=== PATIENT | female | born 1940 | race Hispanic/Latino ===

== ENCOUNTER 2023-11-25 23:30 | Emergency (ER) | payer MEDICARE ==
[~2023-11-25] VITALS: Ht 165.1 cm; Wt 63.0 kg
[2023-11-25 23:37] VITALS: PULSE 90; RESP 18; TEMP 98.5; O2SAT 100
[2023-11-25] MEDS: KETOROLAC TROMETHAMINE 30 MG/ML VIAL IM STA (23:49)
[2023-11-25] MEDS: TRAMADOL HCL 50 MG TAB PO STA (23:49)
[2023-11-25] MEDS: DEXAMETHASONE SOD PHOS 10 MG/1 ML VIAL IM STA (23:49)
[2023-11-26] MEDS ORDERED: ULTRAM 50MG50 MG PO (00:02)
== END 2023-11-26 | disposition home or self-care (01) ==
LOC: ER 23:35
DX: S16.1XXA Strain of muscle, fascia and tendon at neck level, initial encounter (principal); X50.0XXA Overexertion from strenuous movement or load, initial encounter; Y92.89 Other specified places as the place of occurrence of the external cause; I10 Essential (primary) hypertension
CPT/HCPCS: 99282; J1100; J1885